=== PATIENT | female | born 1995 | race Two or more races ===

== ENCOUNTER 2023-09-24 21:15 | Emergency (ER) | payer MEDICAID, OTHER ==
[~2023-09-24] VITALS: Ht 165.1 cm; Wt 72.7 kg
[~2023-09-24 21:15] MED LIST: NO MEDS
[2023-09-24] MEDS ORDERED: LIDOCAINE 1% 10 ML VIAL SQ ONE (23:45)
[2023-09-25] MEDS: LIDOCAINE/PF 1% 5 ML VIAL SQ ONE (00:12)
[2023-09-25] MEDS ORDERED: CEPH-558 PO (01:27)
[2023-09-25] MEDS: CEPHALEXIN MONOHYDRATE 500 MG CAPSULE PO ONE (01:32)
[2023-09-25] MEDS: PERTUSS(ACELL),DIPH,TET/PF 0.5 ML SYRINGE [ADULT] IM. ONE (01:33)
[2023-09-25 01:43] VITALS: BP 127/73; PULSE 71; RESP 16; TEMP 97.3
== END 2023-09-25 01:43 | disposition home or self-care (01) ==
LOC: EMS 21:15
DX: S61.211A Laceration without foreign body of left index finger without damage to nail, initial encounter (principal); S61.213A Laceration without foreign body of left middle finger without damage to nail, initial encounter; G89.29 Other chronic pain; M54.9 Dorsalgia, unspecified; W26.8XXA Contact with other sharp object(s), not elsewhere classified, initial encounter; Y93.89 Activity, other specified; Y92.89 Other specified places as the place of occurrence of the external cause; Y99.8 Other external cause status
CPT/HCPCS: 99283; 12002; 90715; 90471; J2001